=== PATIENT | female | born 1945 | race Caucasian/White ===

== ENCOUNTER 2017-01-26 05:35 | Observation (INO) | payer OTHER ==
[~2017-01-26] VITALS: Ht 147.3 cm; Wt 74.3 kg
[2017-01-26] MEDS ORDERED: DICL75TA PO (07:23)
[2017-01-26] MEDS ORDERED: CITA40TA4 PO (07:23)
[2017-01-26] MEDS ORDERED: PERC5TAB12 PO (07:23)
[2017-01-26] MEDS ORDERED: TEMA30CA PO (07:23)
[2017-01-26] MEDS ORDERED: OXYC1CAP PO (07:23)
[2017-01-26] MEDS ORDERED: GABA300C5 PO (07:23)
[2017-01-26] MEDS ORDERED: GENTAMICIN SULFATE 80 MG/2 ML VIAL ONE (07:23)
[2017-01-26] MEDS ORDERED: INSULIN HUMAN REGULAR 1,000 UNITS/10 ML VIAL SQ PRN (07:45)
[2017-01-26] MEDS ORDERED: METOPROLOL TARTRATE 25 MG TAB PO PRN (07:45)
[2017-01-26] MEDS ORDERED: LACTATED RINGER'S 1000 ML IV PRN (07:45)
[2017-01-26] MEDS ORDERED: SODIUM CHLORID 0.9% 500 ML IV PRN (07:45)
[2017-01-26] MEDS ORDERED: CHLORHEXIDINE GLUCONATE 2 % 1 PACK (2 CLOTHS) TOPICAL PRN (07:45)
[2017-01-26] MEDS ORDERED: POVIDONE IODINE 5% (ANTISEPSIS KIT) 4 APPLICATIONS EACH NARE PRN (07:45)
[2017-01-26] MEDS ORDERED: ACETAMINOPHEN 1000 MG/100 ML 100 ML IV ONE (08:11)
[2017-01-26] MEDS ORDERED: FAMOTIDINE 20 MG/2 ML VIAL ONE (08:11)
[2017-01-26] MEDS ORDERED: VANCOMYCIN HCL 1000 MG VIAL ONE (08:17)
[2017-01-26] MEDS ORDERED: ceFAZolin 2 GM PREMIX 50 ML ONE (08:17)
[2017-01-26] MEDS ORDERED: VITA2000 PO (10:16)
[2017-01-26] MEDS ORDERED: CALCTAB19 PO (10:16)
[2017-01-26] MEDS ORDERED: ERGO1CAP30 PO (10:16)
[2017-01-26] MEDS ORDERED: ENDO7.5T10 PO (10:16)
[2017-01-26] MEDS ORDERED: MORPHINE SULFATE 4 MG/ML INJ IV PUSH PRN (10:30)
[2017-01-26] MEDS ORDERED: SODIUM CHLORIDE 0.9% FLUSH 5 ML FLUSH IVF PRN (10:30)
[2017-01-26] MEDS ORDERED: ONDANSETRON HCL 4 MG/2 ML VIAL IVP PRN (10:30)
[2017-01-26] MEDS ORDERED: diphenhydrAMINE HCL 25 MG CAP PO PRN (10:30)
--- NOTE | 2017-01-26 10:30 | PD.ORT.PN ---
Subjective Subjective Remarks POD 0 s/p ORIF left proximal humerus stable in pacu Objective Vitals Vital Signs Date Time Temp Pulse Resp B/P (MAP) Pulse Ox O2 Delivery O2 Flow Rate FiO2 01/26/17 07:10 98.1 64 16 127/96 (106) 99 Objective Remarks LUE: dressings clean and dry. intact. NVI. +sling/swathe Assessment & Plan Assessment and Plan 1) Left Proximal Humerus fx s/p ORIF - POD 0 -NWB -daily dressing changes POD 2 -pendulums -plan for home on sunday with [facility] -f/u with Jaqueline or [facility] in 2 weeks Alexis Kelley Jan 26, 2017 10:30
--- NOTE | 2017-01-26 10:31 | HHI.FF ---
Face to Face Verification Diagnosis: (1) Closed fracture of left proximal humerus Occupational Therapy Left UE Weight Bearing: Non WB Left UE Range of Motion: Pendular Nursing Dressing Changes: Daily dressing change, Hieu wrap, 4x4s, Paper tape, Xeroform I have seen patient Mara Jerez on 01/26/17. My clinical findings support the need for the requested home health care services because: Ltd mobility - disease progression I certify that my clinical findings support that this patient is homebound because: Post-op weakness Alexis Kelley Jan 26, 2017 10:31
--- NOTE | 2017-01-26 10:34 | PD.OP ---
cc: Nathanael Bo MD Operative Report Date of Surgery: Jan 26, 2017 Preoperative Diagnosis: Comminuted left proximal humerus fracture Postoperative Diagnosis: Procedure: Open reduction internal fixation left proximal humerus Anesthesia: Gen. Surgeon: Nathanael Bo Survey Supervisor(s): ANTHONY Marcum PA-C The surgical procedure was assisted by my physician news production assistant. My P.A. presence was necessary throughout this case for the manipulation and positioning of the surgical extremity. My P.A. was assisting me throughout the duration of this procedure. The skill set of a physician news production assistant was medically necessary to complete this procedure. During the surgical case the fuel retrofitting technician was working at the back table and the physician news production assistant was directly assisting me. Operation and Findings: Patient was seen and evaluated preoperatively. Patient was found to have a displaced left proximal humerus fracture. The risks and benefits of surgical and nonsurgical options were discussed in detail and informed consent was obtained for surgery. Patient was brought to the operating room and placed on or table. IV sedation and GETA were administered by anesthesiologist. Antibiotics were given prior to incision. Operative arm and shoulder were prepped with alcohol followed by Hibiclens and draped usual sterile fashion. Timeout procedure was performed. Procedure began with a 5 inch incision over the anterior shoulder. Cephalic vein was identified. A deltopectoral approach was utilized. The fracture was now visualized. Soft tissue was retracted. A #5 FiberWire suture was placed into the rotator rotator cuff and greater tuberosity. A second #5 FiberWire suture was placed into the lesser tuberosity and subscapularis tendon. Attention was now turned to reduction. Gentle traction was applied. The humeral shaft was reduced to the humeral head. Fracture was manipulated to achieve excellent reduction. Multiplanar fluoroscopy confirmed well aligned fracture. Multiple K wires were used to hold provisional fixation. A Synthes proximal humerus plate was selected. Plate was provisionally held in place K wires. 3.5 cortical screws were used to compress plate to bone. Fluoroscopy confirmed appropriate plate placement and fracture reduction. Multiple locking screws were now placed in the humeral head. Screws were predrilled and premeasured for appropriate length. Care was taken not to penetrate the articular surface. Additional screws were placed in the humeral shaft. The FiberWire sutures were passed through the holes of the plate and sutured to the plate for additional stability. Final fluoroscopy revealed well aligned fracture with well-placed hardware. Wound was thoroughly irrigated. Fascia was closed with #1 Vicryl, subcutaneous tissues closed with 3-0 Vicryl, and skin was closed with ghassan. Sterile dressings were applied. Patient was placed into a sling. Patient was awakened and transferred to recovery in stable condition. Needle and sponge counts were correct. Nathanael Bo MD Jan 26, 2017 10:34
[2017-01-26] MEDS ORDERED: DO NOT ADM ANY ANTICOAGULANT DRUGS PRN (11:04)
[2017-01-26] MEDS ORDERED: *morphine SULFATE 8 MG/ML PERIprocedure ONLY ONE ×2 (11:08→11:21)
[2017-01-26] MEDS ORDERED: ROCURONIUM INJ 50 MG/5 ML SYRINGE IV PUSH ONE (11:51)
[2017-01-26] MEDS ORDERED: MIDAZOLAM HCL 2 MG/2 ML VIAL IV ONE (11:51)
[2017-01-26] MEDS ORDERED: NEOSTIGMINE 3 MG/3 ML SYR IV ONE (11:51)
[2017-01-26] MEDS ORDERED: ONDANSETRON HCL 4 MG/2 ML VIAL IV PUSH ONE (11:51)
[2017-01-26] MEDS ORDERED: ePHEDrine/NS 25 MG/5 ML SYR IV ONE (11:51)
[2017-01-26] MEDS ORDERED: GLYCOPYRROLATE 1 MG/5 ML SYRINGE IV PUSH ONE (11:51)
[2017-01-26] MEDS ORDERED: PHENYLEPH/NS 1000 MCG/10 ML SYR IV ONE (11:51)
[2017-01-26] MEDS ORDERED: PROPOFOL 200 MG/20 ML AMP IV ONE (11:51)
[2017-01-26] MEDS ORDERED: LIDOCAINE HCL 1% PF 5 ML AMPULE OTHER ONE (11:51)
[2017-01-26] MEDS ORDERED: DEXAMETHASONE SOD PHOS 4 MG/ML VIAL IV ONE (11:51)
[2017-01-26] MEDS ORDERED: LACTATED RINGER'S 1000 ML INJ 2,000 ML IV ONE (11:51)
[2017-01-26] MEDS ORDERED: BUPIVACAINE HCL PF 0.5% 30 ML VIAL NERV BLOCK ONE (12:15)
[2017-01-26 12:50] VITALS: BP 104/79; PULSE 84; RESP 15; TEMP 96.1; O2SAT 98
[2017-01-26] MEDS ORDERED: ERGOCALCIFEROL (VIT D2) 50,000 UNIT CAP PO SCH (14:00)
--- NOTE | 2017-01-26 14:11 | RADRPT ---
EXAM DATE/TIME: 01/26/2017 10:18 [facility] COMPARISON: No previous studies available for comparison. INDICATIONS : Left shoulder open reduction internal fixation. MEDICAL HISTORY : None. SURGICAL HISTORY : None. ENCOUNTER: Initial ACUITY: 1 day PAIN SCORE: Non-responsive. LOCATION: Left shouder CONCLUSION: Fluoroscopic images during placement of compression plate and screws fixating a proximal humeral frac ture. Reinaldo Lugo MD on January 26, 2017 at 14:09 Board Certified Radiologist. This report was verified electronically.
[2017-01-26 16:00] VITALS: BP 104/69; PULSE 95; RESP 17; TEMP 97.8; O2SAT 98
--- NOTE | 2017-01-26 16:23 | EKG ---
Date Performed: 01/26/2017 Time Performed: 07:03:41 PTAGE: 71 years EKG: Sinus rhythm NORMAL ECG NO PREVIOUS TRACING DOCTOR: Dianne Gordon Interpretating Date/Time 01/26/2017 16:22:34
[2017-01-26] MEDS: ceFAZolin 2 GM PREMIX 50 ML IV SCH (18:27)
[2017-01-26] MEDS: CALCIUM/VITAMIN D 250 MG/125 U TAB PO SCH (18:30)
[2017-01-26 20:00] VITALS: BP 104/69; PULSE 87; RESP 16; TEMP 97.7; O2SAT 95
[2017-01-26] MEDS: SODIUM CHLORIDE 0.9% FLUSH 5 ML FLUSH IVF SCH (20:36)
[2017-01-26] MEDS: DOCUSATE SODIUM 50 MG/SENNA 8.6 MG TAB PO SCH (20:36)
[2017-01-27] MEDS: ACETAMINOPHEN/HYDROcodone 325 MG/7.5 MG TAB PO PRN ×6 (00:02→17:37)
[2017-01-27] MEDS: ceFAZolin 2 GM PREMIX 50 ML IV SCH ×2 (00:02→07:58)
[2017-01-27 00:06] VITALS: BP 126/59; PULSE 86; RESP 17; TEMP 98.1; O2SAT 95
[2017-01-27 04:02] VITALS: BP 144/79; PULSE 83; RESP 17; TEMP 98.2; O2SAT 98
[2017-01-27] MEDS: CALCIUM/VITAMIN D 250 MG/125 U TAB PO SCH ×3 (07:56→17:37)
[2017-01-27] MEDS: DOCUSATE SODIUM 50 MG/SENNA 8.6 MG TAB PO SCH (07:56)
[2017-01-27 08:00] VITALS: BP 149/72; PULSE 65; RESP 17; TEMP 95.6; O2SAT 99
[2017-01-27] MEDS: SODIUM CHLORIDE 0.9% FLUSH 5 ML FLUSH IVF SCH (08:04)
[2017-01-27] MEDS ORDERED: CHOLECALCIFEROL (VIT D3) 1000 UNIT TAB PO SCH (09:00)
[2017-01-27 12:00] VITALS: BP 138/81; PULSE 72; RESP 18; TEMP 96.1; O2SAT 99
[2017-01-27 16:00] VITALS: BP 117/71; PULSE 80; RESP 18; TEMP 97.3; O2SAT 97
--- NOTE | 2017-01-27 16:40 | PD.ORT.PN ---
Subjective Post Op Day #: 1 Subjective Remarks Patient is OOB in chair and is having mild to moderate pain. Patient is ready for discharge home today with home health. Family at bedside. Objective Vitals Vital Signs Date Time Temp Pulse Resp B/P (MAP) Pulse Ox O2 Delivery O2 Flow Rate FiO2 01/27/17 12:00 96.1 72 18 138/81 (100) 99 01/27/17 08:00 95.6 65 17 149/72 (97) 99 01/27/17 04:02 98.2 83 17 144/79 (100) 98 01/27/17 00:06 98.1 86 17 126/59 (81) 95 01/26/17 20:00 97.7 87 16 104/69 (81) 95 I/O 01/26/17 01/26/17 01/26/17 01/27/17 01/27/17 01/27/17 07:00 15:00 23:00 07:00 15:00 23:00 Intake Total 1480 ml 720 ml 240 ml 50 ml Output Total 1300 ml 450 ml 450 ml Balance 180 ml 270 ml -210 ml 50 ml Intake Oral 480 ml 720 ml 240 ml IV Total 50 ml Other 1000 ml Output Urine Total 1200 ml 450 ml 450 ml Estimated Blood Loss 100 ml # Voids 0 0 # Bowel Movements 0 0 Objective Remarks LUE: dressings clean and dry. intact. NVI. +sling/swathe. Moderate ecchymosis to LUE. Assessment & Plan Ortho Post Op Day #: 1 Problem List: Assessment and Plan 1) Left Proximal Humerus fx s/p ORIF - POD 1 -NWB -daily dressing changes POD 2 -pendulums -plan for home today with [facility] -f/u with Jaqueline or [facility] in 2 weeks Joshua Smith Jan 27, 2017 16:40
== END 2017-01-27 18:55 | disposition home or self-care (01) ==
LOC: HSDC 05:35 → HSDI 10:32 → N06B 12:40
PROVIDERS: ADMIT Orthopaedic Surgery Orthopaedic Trauma; ATTEND Orthopaedic Surgery Orthopaedic Trauma
DX: S42.202A Unspecified fracture of upper end of left humerus, initial encounter for closed fracture (principal); M81.0 Age-related osteoporosis without current pathological fracture; J45.909 Unspecified asthma, uncomplicated; R20.0 Anesthesia of skin; W01.0XXA Fall on same level from slipping, tripping and stumbling without subsequent striking against object, initial encounter; Y93.89 Activity, other specified; Y92.019 Unspecified place in single-family (private) house as the place of occurrence of the external cause; Z01.810 Encounter for preprocedural cardiovascular examination
CPT/HCPCS: 01630; 23615; 64415; 73030; 76000; 93005; 96365; 96375; 97110; 97162; 97167; 97535; C1713; G0378; G8987; G8988; J0131; J0690; J1100; J1580; J2250; J2270; J2370; J2405; J2710; J3010; J3370; J7120